=== PATIENT | male | born 1970 | race Caucasian/White ===

== ENCOUNTER 2022-11-27 11:55 | Inpatient (IN) | payer SELFPAY ==
[2022-11-27 12:19] VITALS: BMI 26.2
[2022-11-27] MEDS ORDERED: BISMUTH SUBSALICYLATE 524 MG/30 ML PO PRN (12:46)
[2022-11-27] MEDS ORDERED: MAG HYDROX/AL HYDROX/SIMETH 30 ML UNIT-DOSE CUP PO PRN (12:46)
[2022-11-27] MEDS ORDERED: IBUPROFEN 400 MG TABLET (FP) PO PRN (12:46)
[2022-11-27] MEDS ORDERED: ACETAMINOPHEN 325 MG TABLET (FP) PO PRN (12:46)
[2022-11-27] MEDS ORDERED: NICOTINE POLACRILEX 2 MG GUM BUC PRN (12:46)
[2022-11-27] MEDS ORDERED: MAGNESIUM HYDROX 2400MG/30ML ORAL SUSPENSION 30 ML CUP PO PRN (12:46)
[2022-11-27] MEDS ORDERED: P-EPHED 60MG/TRIPROLIDI 2.5MG TABLET PO PRN (12:46)
[2022-11-27] MEDS ORDERED: guaiFENesin 600 MG TABLET.ER (FP) PO PRN (12:46)
[2022-11-27] MEDS ORDERED: BENZOCAINE/MENTHOL (CHLORASEPTIC ) LOZENGE MM PRN (12:46)
[2022-11-27] MEDS ORDERED: ONDANSETRON *ODT* 4 MG TABLET SL PRN (12:46)
[2022-11-27] MEDS ORDERED: METHOCARBAMOL 500 MG TABLET PO PRN (12:46)
[2022-11-27] MEDS ORDERED: IBUPROFEN 600 MG TABLET (FP) PO PRN (12:46)
[2022-11-27] MEDS ORDERED: BENZONATATE 200 MG CAPSULE PO PRN (12:46)
[2022-11-27] MEDS ORDERED: DICYCLOMINE HCL 10 MG CAPSULE PO PRN (12:46)
[2022-11-27] MEDS ORDERED: LOPERAMIDE HCL 2 MG CAPSULE PO PRN (12:46)
[2022-11-27] MEDS ORDERED: POLYETHYLENE GLYCOL (HEALTHYLAX) 3350 17 GM PACKET PO PRN (12:46)
[2022-11-27] MEDS ORDERED: chlordiazePOXIDE HCL 25 MG CAPSULE ONE (13:01)
[2022-11-27] MEDS ORDERED: ONDANSETRON *ODT* 4 MG TABLET ONE (13:02)
[2022-11-27] MEDS ORDERED: METOPROLOL TARTRATE 25 MG TABLET (FP) ONE (13:02)
[2022-11-27] MEDS: chlordiazePOXIDE HCL 25 MG CAPSULE PO PRN (13:03)
[2022-11-27] MEDS ORDERED: METOPROLOL TARTRATE 25 MG TABLET (FP) PO ONE (13:15)
[2022-11-27] MEDS: chlordiazePOXIDE HCL 25 MG CAPSULE PO SCH ×2 (17:04→22:02)
[2022-11-27] MEDS: QUEtiapine FUMARATE 50 MG TABLET PO SCH (22:02)
[2022-11-27] MEDS: THIAMINE HCL 100 MG TABLET (FP) PO SCH (22:02)
[2022-11-27] MEDS: MELATONIN 5 MG TABLETS PO SCH (23:08)
[2022-11-28] MEDS: chlordiazePOXIDE HCL 25 MG CAPSULE PO SCH ×4 (05:42→22:36)
[2022-11-28 09:55] LABS: HEMATOCRIT 44.6 % (35.4-49); HEMOGLOBIN 15.2 GM/dL (11.7-16.9); MCH 29.2 pg (25.7-33.7); MCHC 34.1 g/dl (32.0-35.9); MEAN CELL VOLUME 85.6 fl (80-96); MEAN PLT VOLUME 8.1 fl (7.5-11.1); PLATELET COUNT 110 10^3/uL (134-434); RBC 5.21 M/mm3 (4.00-5.60); RDW 14.8 % (11.9-15.9); WHITE BLOOD COUNT 6.1 K/mm3 (4.0-10.0)
[2022-11-28 09:58] LABS: POTASSIUM 3.5 mmol/L (3.5-5.1)
[2022-11-28 10:06] LABS: BLOOD UREA NITROGEN 7.6 mg/dL (7-18); CALCIUM 8.9 mg/dL (8.5-10.1)
[2022-11-28 10:09] LABS: ALBUMIN 4.2 g/dl (3.4-5.0); CREATININE 0.8 mg/dL (0.55-1.3)
[2022-11-28 10:11] LABS: BILIRUBIN,TOTAL 1.2 mg/dL (0.2-1); TOT PROT 8.3 g/dl (6.4-8.2)
[2022-11-28] MEDS: PRENATAL VITAMINS W/ FOLIC ACID TABLET (FP) PO SCH (10:11)
[2022-11-28] MEDS: THIAMINE HCL 100 MG TABLET (FP) PO SCH (22:36)
[2022-11-28] MEDS: QUEtiapine FUMARATE 50 MG TABLET PO SCH (22:36)
[2022-11-28] MEDS: MELATONIN 5 MG TABLETS PO SCH (22:38)
[2022-11-29] MEDS: chlordiazePOXIDE HCL 25 MG CAPSULE PO PRN (05:17)
[2022-11-29] MEDS: chlordiazePOXIDE HCL 25 MG CAPSULE PO SCH ×4 (05:55→22:28)
[2022-11-29] MEDS: hydrOXYzine PAMOATE 25 MG CAPSULE (FP) PO PRN (10:13)
[2022-11-29] MEDS: PRENATAL VITAMINS W/ FOLIC ACID TABLET (FP) PO SCH (10:15)
[2022-11-29 10:41] LABS: POTASSIUM 3.7 mmol/L (3.5-5.1)
[2022-11-29 10:44] LABS: ALBUMIN 3.7 g/dl (3.4-5.0); CALCIUM 9.2 mg/dL (8.5-10.1)
[2022-11-29 10:47] LABS: CREATININE 0.7 mg/dL (0.55-1.3)
[2022-11-29 10:48] LABS: TOT PROT 7.2 g/dl (6.4-8.2)
[2022-11-29 10:49] LABS: BILIRUBIN,TOTAL 0.9 mg/dL (0.2-1)
[2022-11-29] MEDS: QUEtiapine FUMARATE 50 MG TABLET PO SCH (22:28)
[2022-11-29] MEDS: THIAMINE HCL 100 MG TABLET (FP) PO SCH (22:28)
[2022-11-29] MEDS: MELATONIN 5 MG TABLETS PO SCH (22:35)
[2022-11-30] MEDS ORDERED: chlordiazePOXIDE HCL 10 MG CAPSULE PO PRN
[2022-11-30] MEDS ORDERED: chlordiazePOXIDE HCL 10 MG CAPSULE PO SCH (05:00)
[2022-11-30] MEDS: hydrOXYzine PAMOATE 25 MG CAPSULE (FP) PO PRN (05:37)
[2022-11-30 09:31] VITALS: BP 166/93; PULSE 98; RESP 18; TEMP 97.3
[2022-11-30] MEDS: PRENATAL VITAMINS W/ FOLIC ACID TABLET (FP) PO SCH (09:32)
[2022-12-01] MEDS ORDERED: chlordiazePOXIDE HCL 10 MG CAPSULE PO SCH (05:00)
[2022-12-02] MEDS ORDERED: chlordiazePOXIDE HCL 10 MG CAPSULE PO ONE (05:00)
== END 2022-11-30 09:48 | disposition left against medical advice (07) | DRG 770 ==
LOC: YASAS 11:55 → Y6N 13:24
PROVIDERS: ADMIT Allergy & Immunology; ATTEND Surgery
PROC: HZ2ZZZZ Detoxification Services for Substance Abuse Treatment (ICD-10-PCS; principal; 2022-11-27)
DX: F10.230 Alcohol dependence with withdrawal, uncomplicated (principal); F17.290 Nicotine dependence, other tobacco product, uncomplicated; F32.A Depression, unspecified; F43.81 Prolonged grief disorder; Z87.891 Personal history of nicotine dependence
CPT/HCPCS: 36415; 80053; 83036; 85027; 86780; 87635; 93005; 93010; Q0162

== ENCOUNTER 2024-05-12 17:07 | Inpatient (IN) | payer OTHER ==
[2024-05-12 17:31] VITALS: BMI 27.6
[2024-05-12] MEDS ORDERED: chlordiazePOXIDE HCL 25 MG CAPSULE PO PRN (18:25)
[2024-05-12] MEDS ORDERED: BENZOCAINE/MENTHOL (CHLORASEPTIC ) LOZENGE MM PRN (18:26)
[2024-05-12] MEDS ORDERED: P-EPHED 60MG/TRIPROLIDI 2.5MG TABLET PO PRN (18:26)
[2024-05-12] MEDS ORDERED: NICOTINE POLACRILEX 2 MG LOZENGE BC PRN (18:26)
[2024-05-12] MEDS ORDERED: guaiFENesin 600 MG TABLET.ER (FP) PO PRN (18:26)
[2024-05-12] MEDS ORDERED: DICYCLOMINE HCL 10 MG CAPSULE PO PRN (18:26)
[2024-05-12] MEDS ORDERED: BISMUTH SUBSALICYLATE 524 MG/30 ML PO PRN (18:26)
[2024-05-12] MEDS ORDERED: POLYETHYLENE GLYCOL (HEALTHYLAX) 3350 17 GM PACKET PO PRN (18:26)
[2024-05-12] MEDS ORDERED: LOPERAMIDE HCL 2 MG CAPSULE PO PRN (18:26)
[2024-05-12] MEDS ORDERED: IBUPROFEN 400 MG TABLET (FP) PO PRN (18:26)
[2024-05-12] MEDS ORDERED: MAGNESIUM HYDROX 2400MG/30ML ORAL SUSPENSION 30 ML CUP PO PRN (18:26)
[2024-05-12] MEDS ORDERED: IBUPROFEN 600 MG TABLET (FP) PO PRN (18:26)
[2024-05-12] MEDS ORDERED: NALOXONE (NARCAN) HCL 4 MG/0.1 ML SPRAY NS PRN (18:26)
[2024-05-12] MEDS ORDERED: BENZONATATE 200 MG CAPSULE PO PRN (18:26)
[2024-05-12] MEDS ORDERED: NICOTINE POLACRILEX 2 MG GUM BUC PRN (18:26)
[2024-05-12] MEDS: MELATONIN 5 MG TABLETS PO SCH (23:00)
[2024-05-12] MEDS: THIAMINE 100 MG TABLET PO SCH (23:00)
[2024-05-12] MEDS: chlordiazePOXIDE HCL 25 MG CAPSULE PO SCH (23:01)
[2024-05-13] MEDS: PRENATAL VITAMINS W/ FOLIC ACID TABLET (FP) PO SCH (10:59)
[2024-05-13] MEDS: METHOCARBAMOL 500 MG TABLET PO PRN (11:01)
[2024-05-13] MEDS: ONDANSETRON *ODT* 4 MG TABLET SL PRN (11:01)
[2024-05-13 11:13] LABS: ALBUMIN 3.1 g/dl (3.4-5.0); CALCIUM 8.5 mg/dL (8.5-10.1)
[2024-05-13 11:14] LABS: HEMATOCRIT 37.5 % (35.4-49); HEMOGLOBIN 12.9 GM/dL (11.7-16.9); MCH 33.6 pg (25.7-33.7); MCHC 34.4 g/dl (32.0-35.9); MEAN CELL VOLUME 97.5 fl (80-96); MEAN PLT VOLUME 8.2 fl (7.5-11.1); PLATELET COUNT 286 10^3/uL (134-434); RBC 3.84 M/mm3 (4.00-5.60); RDW 15.8 % (11.9-15.9); WHITE BLOOD COUNT 7.5 K/mm3 (4.0-10.0)
[2024-05-13 11:17] LABS: CREATININE 0.6 mg/dL (0.55-1.3)
[2024-05-13 11:18] LABS: TOT PROT 6.5 g/dl (6.4-8.2)
[2024-05-13] MEDS: QUEtiapine FUMARATE 50 MG TABLET PO SCH (22:51)
[2024-05-13] MEDS: ACETAMINOPHEN 325 MG TABLET (FP) PO PRN (22:55)
[2024-05-14] MEDS: chlordiazePOXIDE HCL 25 MG CAPSULE PO SCH (05:54)
[2024-05-15] MEDS ORDERED: chlordiazePOXIDE HCL 10 MG CAPSULE PO PRN
[2024-05-15] MEDS: chlordiazePOXIDE HCL 10 MG CAPSULE PO SCH (05:37)
[2024-05-15] MEDS: MAG HYDROX/AL HYDROX/SIMETH 30 ML UNIT-DOSE CUP PO PRN (20:33)
[2024-05-16] MEDS: chlordiazePOXIDE HCL 10 MG CAPSULE PO SCH (05:55)
[2024-05-17] MEDS: chlordiazePOXIDE HCL 10 MG CAPSULE PO ONE (05:43)
[2024-05-17 06:05] VITALS: BP 142/86; PULSE 63; RESP 16; TEMP 97.7
== END 2024-05-17 10:11 | disposition home or self-care (01) | DRG 775 ==
LOC: YASAS 17:07 → Y3N 20:04
PROVIDERS: ADMIT Allergy & Immunology; ATTEND Allergy & Immunology
PROC: HZ2ZZZZ Detoxification Services for Substance Abuse Treatment (ICD-10-PCS; principal; 2024-05-12)
DX: F10.230 Alcohol dependence with withdrawal, uncomplicated (principal); F17.210 Nicotine dependence, cigarettes, uncomplicated; F41.9 Anxiety disorder, unspecified; G62.9 Polyneuropathy, unspecified; M21.372 Foot drop, left foot; R26.89 Other abnormalities of gait and mobility; Z87.820 Personal history of traumatic brain injury; Z56.0 Unemployment, unspecified; Z59.01 Sheltered homelessness
CPT/HCPCS: 36415; 80053; 80305; 85027; 86780; 93005; 93010; Q0162